=== PATIENT | male | born 1975 | race Caucasian/White ===

== ENCOUNTER 2021-07-26 20:12 | Emergency (ER) | payer BC, SELFPAY ==
--- NOTE | ~2021-07-26 | CT_ITS ---
EXAMINATION: CT abdomen pelvis w con DATE: 07/26/2021 22:38 INDICATION: abd pain TECHNIQUE: Computed tomography (CT) of the abdomen and pelvis was performed with 100 mL Omnipaque-350 intravenous contrast. Automated exposure control and iterative reconstruction technique were employe d. The dose-length product was 1447.29 mGy-cm. COMPARISON: 03/13/2019. FINDINGS: Lower thorax: Right lower lobe air cysts, small hiatal hernia, otherwise unremarkable. Liver: Steatosis. Biliary/Gallbladder: Gallbladder is absent. No bile duct dilation. Spleen: Subcentimeter hypodensities, possible cyst or hemangioma. Pancreas: No mass or duct dilation. Adrenals:Right adrenal adenoma. Kidneys: No mass, stone, or hydronephrosis. GI tract: No small or large bowel dilation. Segmental water density wall thickening involving the dis rita ileum. Normal appendix. Mesentery/Peritoneum: No mass or free air. Small volume interloop fluid in the right lower quadrant. Retroperitoneum: No mass. Pelvis: Pelvic organs are within normal limits. Small volume free pelvic fluid. Bones/Soft Tissues: Soft tissues and body wall unremarkable. Additional Findings: None. IMPRESSION: Segmental distal ileitis, as can be seen with infectious, inflammatory, and ischemic etiologies. Smal l volume mesenteric and pelvic fluid. Reviewed, dictated and finalized at location K. IMPRESSION: Segmental distal ileitis, as can be seen with infectious, inflammatory, and isc hemic etiologies. Small volume mesenteric and pelvic fluid.
[2021-07-26 21:03] VITALS: BP 142/91; PULSE 84; RESP 16; TEMP 36.9; O2SAT 94
--- NOTE | 2021-07-26 21:18 | PC.NURSE ---
Attempted to obtain labs for protocol. Poor vasculature, unable to obtain.
[2021-07-26 22:05] LABS: Basophils Absolute Auto 0.1 K/mm3 (0.0-0.1); Basophils Percent Auto 0.8 % (0.2-1.2); Eosinophils Absolute Auto 0.3 K/mm3 (0-0.3); Eosinophils Percent Auto 1.9 % (0-4.4); Hematocrit 48.8 % (42.0-52.0); Hemoglobin 16.2 g/dL (14.0-18.0); Immature Granulocyte Absolute 0.06 K/mm3 (0.00-0.031); Immature Granulocyte Percent A 0.4 % (0-0.5); Lymphocytes Absolute Auto 1.33 K/mm3 (0.9-3.2); Lymphocytes Percent Auto 9.9 % (18.3-44.2); Mean Corpuscular HGB Conc 33.2 g/dl (32-36); Mean Corpuscular Hemoglobin 31.6 pg (26-34); Mean Corpuscular Volume 95.3 fl (80-100); Mean Platelet Volume 9.5 fl (7.4-10.4); Monocytes Absolute Auto 1.4 K/mm3 (0.1-0.6); Monocytes Percent Auto 10.2 % (2.6-8.5); Neutrophils Absolute Auto 10.3 K/mm3 (1.3-6.7); Neutrophils Percent Auto 76.8 % (45.5-73.1); Platelet Count Result 194 k/mm3 (150-375); Red Blood Count 5.12 M/mm3 (4.6-6.20); Red Cell Distribution Width 12.2 % (11.5-14.5); White Blood Count 13.4 K/mm3 (4.5-10.0)
[2021-07-26 22:17] LABS: Alanine Aminotransferase 13 U/L (4-50); Albumin Level 4.4 g/dL (3.5-5.1); Alkaline Phosphatase 70 U/L (38-126); Anion Gap 9 mmol/L (8-16); Aspartate Amino Transferase 22 U/L (17-59); Bilirubin,Total 0.6 mg/dL (0.2-1.3); Blood Urea Nitrogen 11 mg/dL (9-20); Calcium 8.6 mg/dL (8.4-10.2); Carbon Dioxide 22 mmol/L (22-30); Chloride 105 mmol/L (98-107); Estimated CRCL calculation 144 ml/min; Estimated Glomerular Filt Rate > 60; Glucose 117 mg/dL (65-110); Lipase 43 U/L (23-300); Sodium 136 mmol/L (137-145)
[2021-07-26] MEDS: DICYCLOMINE HCL INJ 20 MG/2 ML VIAL IM (22:17)
[2021-07-26] MEDS: ONDANSETRON INJ 4 MG/2 ML VIAL IV PUSH (22:17)
[2021-07-26] MEDS: SODIUM CHLORIDE 0.9% IV 1,000 ML 999 ML IV CONT (22:17)
[2021-07-26 22:18] LABS: Add Urine Microscopic? YES; Appearance Urine Cloudy (Clear); Bacteria Urine Trace /hpf; Bilirubin Urine Negative (Negative); Blood Urine Negative (Negative); Color Urine Amber (Yellow); Glucose Urine UA Negative (Negative); Ketones Urine Trace mg/dL (Negative); Leukocyte Esterase Ur Negative LEU/UL (Negative); Mucus Urine Heavy /lpf; Nitrate Urine Negative (Negative); Protein Urine Negative (Negative); Squamous Epithelial Cell Urine Many /hpf (Few); Urobilinogen Urine Negative mg/dL (<2.0); WBC Urine 0-3 /hpf
[2021-07-26 22:20] LABS: Specific Grav Ur 1.032 (1.001-1.035)
--- NOTE | 2021-07-26 22:27 | ED.ABDPAIN ---
HPI - Abdominal Pain General Chief Complaint: Abdominal Pain Stated Complaint: abdominal pain Time Seen by Provider: 07/26/21 21:19 History of Present Illness HPI narrative: 46-year-old male presents emergency room with acute onset of nausea, vomiting, diarrhea and abdominal cramping. Patient states that he has been feeling ill for the last 2 days. Denies fever. Has a history of cholecystectomy. Unknown exposure to individuals with similar symptoms. Related Data Home Medications Medication Instructions Recorded Confirmed testosterone cypionate 200 mg IM [id number] 03/13/19 03/13/19 Allergies Allergy/AdvReac Type Severity Reaction Status Date / Time chlorpromazine Allergy Unknown Agitated Verified 07/26/21 21:59 Review of Systems Review of Systems: CONSTITUTIONAL: Denies fever, chills, or sweats. EYES: Denies visual changes, redness, or discharge. ENT: Denies rhinorrhea, congestion, sore throat, or otalgia. CARDIOVASCULAR: Denies chest pain, palpitations, or edema. RESPIRATORY: Denies cough or dyspnea. GASTROINTESTINAL: Reports abdominal pain, nausea, vomiting, and diarrhea. GENITOURINARY: Denies dysuria or hematuria. SKIN: Denies rash or itching. MUSCULOSKELETAL: Denies back pain, joint pain, or myalgia. NEUROLOGIC: Denies headache, numbness, dizziness, or weakness. PSYCHIATRIC: Denies anxiety or depression. 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 History of testicular cancer Developed age 4. Status post orchiectomy. Hx of meningioma of the brain Removed age 11 by surgery and Gamma Knife. Hypogonadism in male Morbid (severe) obesity due to excess calories Smoker Surgical History Surgical History History of cholecystectomy Social History Social History Smoking status: Current every day smoker Gender identity (if verbalized by the patient): Male Exam Narrative: GENERAL: Well-appearing, well-nourished, and in no acute distress. HEAD: Normocephalic, atraumatic. EYES: PERRLA and EOMI. CHEST: Clear to auscultation. No respiratory distress. No wheezes rales or rhonchi HEART: Regular rate and rhythm. No murmur heard. Normal peripheral pulses. ABDOMEN: Soft, right upper quadrant and left upper quadrant tenderness, nondistended, normal active bowel sounds. No fluid wave, no rebound tenderness, negative heel strike, negative psoas and obturator signs EXTREMITIES: Normal range of motion. No edema. SKIN: Warm, dry, no rash. NEURO: No focal deficits. Alert and oriented x3. PSYCH: Normal mood and affect. Course Vital Signs Vital signs: Vital Signs Temperature 36.9 C 07/26/21 21:03 Pulse Rate 84 07/26/21 21:03 Respiratory Rate 16 07/26/21 21:03 Blood Pressure 142/91 H 07/26/21 21:03 Pulse Oximetry 94 07/26/21 21:03 Temperature 36.9 C 07/26/21 21:03 Pulse Rate 84 07/26/21 21:03 Respiratory Rate 16 07/26/21 21:03 Blood Pressure 142/91 H 07/26/21 21:03 Pulse Oximetry 94 07/26/21 21:03 MDM - Abdominal Pain MDM Narrative Medical decision making narrative: 46-year-old male presents emergency room with complaints of upper abdominal pain started this morning. Pain is associated with nausea and diarrhea. Patient reports the pain is cramping. CBC was shows slightly elevated white blood cell count. CT scan shows a segmental distal ileitis. Patient is likely experiencing infectious colitis. Cipro started in the emergency room. We will send patient home with Cipro and Flagyl with follow-up to GI. Differential Diagnosis Differential diagnosis: Likely abdominal pain Lab Data Attestation: I reviewed the patient's lab results. Result diagrams: 07/26/21 21:58 07/26/21 21:58 Labs: Lab Results 07/26/21 07/26/21 07/26/21 Range/Units 21:58 21:58 22:06 W
[2021-07-26] MEDS: KETOROLAC 30 MG/ML VIAL (*BKC) IV PUSH (23:35)
[2021-07-26] MEDS: CIPROFLOXACIN 400 MG/D5W 200ML 200 ML 200 MG IVPB (23:36)
[2021-07-26 23:59] VITALS: BP 117/84; PULSE 89; RESP 18; O2SAT 98
[2021-07-27 00:34] VITALS: BP 123/80; PULSE 76; RESP 16; O2SAT 98
== END 2021-07-27 00:42 | disposition home or self-care (01) ==
PROVIDERS: Emergency Medicine; Emergency Provider Nurse Practitioner Family
DX: K52.9 Noninfective gastroenteritis and colitis, unspecified (principal); R11.0 Nausea; C91.01 Acute lymphoblastic leukemia, in remission; E66.01 Morbid (severe) obesity due to excess calories; F17.210 Nicotine dependence, cigarettes, uncomplicated; Z85.47 Personal history of malignant neoplasm of testis
CPT/HCPCS: 36415; 74177; 80053; 81001; 83690; 85025; 96361; 96365; 96372; 96375; 99284; J0500; J0744; J1885; J2405; J7030; Q9967

== ENCOUNTER 2025-04-10 09:32 | Outpatient (CLI) | payer BC, SELFPAY ==
--- NOTE | ~2025-04-10 | XR_ITS ---
EXAMINATION: XR chest 2V DATE: 04/10/2025 09:58 INDICATION: Nicotine dependence TECHNIQUE: Frontal and lateral views of the chest were obtained. COMPARISON: None. FINDINGS: The lungs are clear. Heart shadow normal. Bones appear intact. IMPRESSION: 1. No focal acute process. If patient has significant exposure to tobacco or smoking, correlation with low-dose lung cancer screening chest CT recommended for optimal evaluation. Reviewed, dictated and finalized at location A. THETIC ASSISTANT IMPRESSION: 1. No focal acute process. If patient has significant exposure to tobacco or sm oking, correlation with low-dose lung cancer screening chest CT recommended for optimal evaluation.
== END 2025-04-10 09:33 | disposition home or self-care (01) ==
LOC: MICIMG 09:34
PROVIDERS: PCP Family Medicine; Visit Provider Physician Assistant Medical
DX: F17.200 Nicotine dependence, unspecified, uncomplicated (principal)
CPT/HCPCS: 71046